=== PATIENT | female | born 1975 | race Caucasian/White ===

== ENCOUNTER 2021-06-07 16:37 | Emergency (ER) | payer MEDICAID ==
[~2021-06-07] VITALS: Ht 154.9 cm; Wt 44.5 kg
[~2021-06-07 16:37] MED LIST: BUDE180A INH; ESCI20TA PO; INSU100V36 SQ; LANTUS SQ; LEVA15HF4 INH; METF1000 PO; NITR0.4T51 SL; ONDA4TAB6 PO; PANT-47 PO
[2021-06-07 17:04] VITALS: BP 114/77
[2021-06-07] MEDS ORDERED: aspirin 81mg tab.chew PO ONE (17:10)
[2021-06-07] MEDS ORDERED: nitroGLYCERIN 0.4mg SUBLingual tab SL PRN (17:10)
[2021-06-07 17:32] LABS: BASOPHILS # (AUTO) 0.1 X10'3 (0-0.2); BASOPHILS % (AUTO) 1.9 % (0-1); EOSINOPHILS # (AUTO) 0.1 X10'3 (0-0.9); HEMATOCRIT 42.8 % (35.0-45.0); HEMOGLOBIN 14.7 g/dl (12.0-16.0); LYMPHOCYTES # (AUTO) 2.5 X10'3 (1.1-4.8); MEAN CORPUSCULAR HEMOGLOBIN 30.6 PG (27.0-31.0); MEAN CORPUSCULAR HGB CONC 34.4 g/dL (33.0-36.5); MEAN PLATELET VOLUME 8.5 FL (7.4-10.4); MONOCYTES # (AUTO) 0.4 X10'3 (0-0.9); NEUTROPHILS # (AUTO) 3.3 X10'3 (1.8-7.7); NEUTROPHILS % (AUTO) 51.1 % (42-75); PLATELET COUNT 248 X10'3 (140-440); RED BLOOD COUNT 4.81 X10'6 (4.20-5.60); RED CELL DISTRIBUTION WIDTH 13.6 % (11.5-14.5); WHITE BLOOD COUNT 6.5 X10'3 (4.5-11.0)
[2021-06-07 17:54] LABS: ALANINE AMINOTRANSFERASE 33 U/L (12-78); ALBUMIN 4.1 G/DL (3.4-5.0); ALBUMIN/GLOBULIN RATIO 1.2 (1.1-1.5); ALKALINE PHOSPHATASE 119 IU/L (46-116); ANION GAP 10 (8-16); ASPARTATE AMINO TRANSFERASE 15 U/L (10-37); BILIRUBIN,TOTAL 0.5 MG/DL (0.1-1.0); BLOOD UREA NITROGEN 7 MG/DL (7-18); BUN/CREATININE RATIO 12.5 (6.6-38.0); CALCIUM 9.4 MG/DL (8.5-10.1); CHLORIDE 101 MMOL/L (99-107); CREATININE 0.56 MG/DL (0.40-0.90); GLUCOSE 180 MG/DL (70-104); POTASSIUM 3.5 MMOL/L (3.5-5.1); SODIUM 139 MMOL/L (135-145); TOTAL CARBON DIOXIDE 28.4 MMOL/L (24-32); TOTAL PROTEIN 7.6 G/DL (6.4-8.2); eGFR > 90 ML/MIN
[2021-06-07 18:04] LABS: ETHANOL < 0.010 GM/DL (0.0-0.010)
== END 2021-06-07 20:34 | disposition left against medical advice (07) ==
LOC: ER 16:38
DX: R07.89 Other chest pain (principal); I25.10 Atherosclerotic heart disease of native coronary artery without angina pectoris; E78.00 Pure hypercholesterolemia, unspecified; I10 Essential (primary) hypertension; E11.9 Type 2 diabetes mellitus without complications; Z90.89 Acquired absence of other organs; Z90.710 Acquired absence of both cervix and uterus; Z88.0 Allergy status to penicillin; Z79.4 Long term (current) use of insulin; Z79.899 Other long term (current) drug therapy
CPT/HCPCS: 36415; 71045; 80053; 80320; 83880; 84484; 85025; 85379; 93005; 99285

== ENCOUNTER 2022-03-05 14:45 | Emergency (ER) | payer MEDICAID ==
[~2022-03-05] VITALS: Ht 154.9 cm; Wt 48.0 kg
[2022-03-05] MEDS ORDERED: dexamethasone sod phosphate 10mg/ml inj PO STA (20:07)
[2022-03-05] MEDS ORDERED: albuterol 2.5 MG/3 ML nebule NEB ONE (20:10)
[2022-03-05 21:06] LABS: BASOPHILS # (AUTO) 0.1 X10'3 (0-0.2); BASOPHILS % (AUTO) 1.3 % (0-1); EOSINOPHILS # (AUTO) 0.1 X10'3 (0-0.9); EOSINOPHILS % (AUTO) 1.5 % (0-6); HEMATOCRIT 45.7 % (35.0-45.0); HEMOGLOBIN 15.5 g/dl (12.0-16.0); LYMPHOCYTES # (AUTO) 2.9 X10'3 (1.1-4.8); LYMPHOCYTES % (AUTO) 36.5 % (21-51); MEAN CORPUSCULAR HEMOGLOBIN 29.7 PG (27.0-31.0); MEAN CORPUSCULAR HGB CONC 33.8 g/dL (33.0-36.5); MEAN CORPUSCULAR VOLUME 87.8 FL (78-98); MEAN PLATELET VOLUME 8.7 FL (7.4-10.4); MONOCYTES # (AUTO) 0.6 X10'3 (0-0.9); MONOCYTES % (AUTO) 7.1 % (2-12); NEUTROPHILS # (AUTO) 4.2 X10'3 (1.8-7.7); NEUTROPHILS % (AUTO) 53.6 % (42-75); PLATELET COUNT 240 X10'3 (140-440); RED CELL DISTRIBUTION WIDTH 13.2 % (11.5-14.5); WHITE BLOOD COUNT 7.9 X10'3 (4.5-11.0)
[2022-03-05 21:17] LABS: ALANINE AMINOTRANSFERASE 16 U/L (12-78); ALBUMIN 4.2 G/DL (3.4-5.0); ALBUMIN/GLOBULIN RATIO 1.1 (1.1-1.5); ALKALINE PHOSPHATASE 114 IU/L (46-116); ANION GAP 10 (8-16); ASPARTATE AMINO TRANSFERASE 13 U/L (10-37); BILIRUBIN,TOTAL 0.7 MG/DL (0.1-1.0); BLOOD UREA NITROGEN 7 MG/DL (7-18); BUN/CREATININE RATIO 10.9 (6.6-38.0); CALCIUM 9.7 MG/DL (8.5-10.1); CHLORIDE 98 MMOL/L (99-107); CREATININE 0.64 MG/DL (0.40-0.90); GLUCOSE 284 MG/DL (70-104); POTASSIUM 3.2 MMOL/L (3.5-5.1); SODIUM 137 MMOL/L (135-145); TOTAL CARBON DIOXIDE 28.6 MMOL/L (24-32); eGFR > 90 ML/MIN
[2022-03-05] MEDS ORDERED: POTASSIUM BICARB 20meq eff tab 20 MEQ TABLET.EFF PO ONE (21:25)
[2022-03-05] MEDS ORDERED: normal saline 1000ML IV soln IVB ONE (21:30)
[2022-03-05] MEDS ORDERED: PRED20TA PO (21:50)
[2022-03-05] MEDS ORDERED: METF-438 PO (21:50)
[2022-03-05] MEDS ORDERED: AZIT250T12 PO (21:50)
[2022-03-05] MEDS ORDERED: azithromycin 250mg tablet PO ONE (22:00)
[2022-03-05 22:13] VITALS: BP 133/77
== END 2022-03-05 22:15 | disposition home or self-care (01) ==
LOC: ER 14:46
DX: J45.901 Unspecified asthma with (acute) exacerbation (principal); U09.9 Post COVID-19 condition, unspecified; E78.00 Pure hypercholesterolemia, unspecified; I11.9 Hypertensive heart disease without heart failure; E11.9 Type 2 diabetes mellitus without complications; Z90.49 Acquired absence of other specified parts of digestive tract; Z88.0 Allergy status to penicillin; Z88.5 Allergy status to narcotic agent; Z79.899 Other long term (current) drug therapy
CPT/HCPCS: 36415; 71046; 80053; 82948; 85025; 94640; 99285; J1100; 94760

== ENCOUNTER → 2023-10-19 | Outpatient (CLI) | payer MEDICAID ==
[~2023-10-19] MED LIST changes: +METF-438 PO
== END | disposition home or self-care (01) ==
LOC: MRI 10:32
PROVIDERS: ATTEND Nurse Practitioner Family
DX: M89.312 Hypertrophy of bone, left shoulder (principal); M75.102 Unspecified rotator cuff tear or rupture of left shoulder, not specified as traumatic; M25.512 Pain in left shoulder
CPT/HCPCS: 73221

== ENCOUNTER 2025-01-17 19:01 | Emergency (ER) | payer MEDICAID ==
[~2025-01-17] VITALS: Ht 154.9 cm; Wt 46.9 kg
[~2025-01-17 19:01] MED LIST changes: -BUDE180A INH; +BUDE180A5 INH; -LEVA15HF4 INH; +LEVA15HF9 INH
--- NOTE | 2025-01-17 19:36 | Physician Documentation ---
HPI ~ General Chief Complaint: Medication Request Stated Complaint: POSS COVID/MED REQUEST Time Seen by MD: 19:35 Primary Medical Doctor: [facility] History of Present Illness HPI Comments Patient presents to the emergency room requesting COVID test. She has some body aches and congestion. No fevers. Also requesting refill of her gabapentin. Medication Reconciliation Allergies: Coded Allergies: Penicillins (Verified Allergy, Unknown, 03/10/14) acetaminophen (Verified Adverse Reaction, Severe, BLISTERS, 03/05/22) oxycodone (Verified Adverse Reaction, Severe, BLISTERS, 03/05/22) Scheduled Budesonide (Pulmicort Flexhaler), 2 PUFFS INH BID, (Reported) Escitalopram Oxalate (Lexapro), 1 TABLET PO DAILY, (Reported) Gabapentin (Neurontin), 1 CAP PO BID Insulin Glargine,Hum.rec.anlog (Lantus Solostar), 60 UNIT SQ BID, (Reported) Insulin Lispro* (Humalog*), 1 VIAL SQ SLIDING SCALE, (Reported) Levalbuterol Tartrate (Xopenex Hfa), 2 PUFFS INH Q4HPRN, (Reported) Metformin HCl (Metformin HCl), 1 TAB PO Q12H Metformin Hcl* (Glucophage*), 1 TABLET PO BID, (Reported) Ondansetron Hcl (Zofran), 1 TAB PO Q8H Pantoprazole Sodium (PROTONIX tablet), 1 TAB PO DAILY Scheduled PRN Nitroglycerin SL* (Nitrostat SL*), 1 TAB SL Q5MIN PRN for chest pain, (Reported) Past Medical History Past Medical History: Coronary Artery Disease, High Cholesterol, Hypertension, Pulmonary Fibrosis, Diabetes Past Surgical History: appendectomy, hysterectomy Alcohol Use: None Lives In: Home Review of Systems ROS All review of systems negative except as per HPI Physical Exam Physical Exam Vital Signs: Temperature: 98.7, Source: Oral, Heart Rate: 96, Respiratory Rate: 16, BP: 116/71, Pulse Oximetry: 97, Weight: 46.900 Oxygen Flow Rate: 0 Physical Exam General: Patient is awake, alert, oriented x4 in no acute distress Head: Normocephalic and atraumatic. Eyes: Conjunctival normal. EOMI. PERRL. ENT: Mucous membranes moist. Neck: Supple, trachea is midline. Chest: Clear to auscultation bilaterally without rales, rhonchi, or wheezes. There is no accessory muscle use or retractions. Cardiac: RRR without murmurs, gallops, or rubs. Abd: Soft, nondistended, nontender, with normoactive bowel sounds. No guarding, rebound, or rigidity. Progress Results/Orders Results/Orders Orders - WILLIAM AKERS MD Covid19 Binax Poc Result Entry (01/17/25 19:38) Vital Signs 01/17/25 01/17/25 19:04 19:45 Temp 98.7 98.6 Pulse 96 96 Resp 16 18 B/P (MAP) 116/71 117/72 Pulse Ox 97 99 O2 Flow Rate 0 Laboratory Tests Test 01/17/25 19:40 SARS-CoV-2 Antigen (Rapid) Negative Medical Decision Making Findings Patient presents to the emergency room requesting COVID test. She is nontoxic appearing he had not feel imaging or additional labs is necessary. COVID negative. Symptoms likely viral in nature Departure Disposition: 01 HOME / SELF CARE / HOMELESS Impression: Primary Impression: General medical exam Condition: Stable Discharge Instructions: Medicine Refill at the Emergency Department Referrals: NO PRIMARY CARE PROVIDER (PCP) Prescriptions Gabapentin (Neurontin) 300 Mg Capsule 1 CAP PO BID for 30 Days, #60 CAP 0 Refills Prov: WILLIAM AKERS MD 01/17/25 Education Educated: Patient Educated regarding: diagnosis, treatment, need for follow up Signature Scribe Signature: No scribe Attestation: The note accurately reflects work and decisions made by me.William Aekrs MD 01/17/25 19:42 WILLIAM AKERS MD Jan 17, 2025 19:36
[2025-01-17] MEDS ORDERED: GABA300C PO (19:41)
[2025-01-17 19:45] VITALS: BP 117/72; PULSE 96; RESP 18; TEMP 98.6; O2SAT 99
== END 2025-01-17 19:51 | disposition home or self-care (01) ==
LOC: ER 19:01
DX: R09.81 Nasal congestion (principal); E11.9 Type 2 diabetes mellitus without complications; E78.00 Pure hypercholesterolemia, unspecified; I10 Essential (primary) hypertension; I25.10 Atherosclerotic heart disease of native coronary artery without angina pectoris; Z76.0 Encounter for issue of repeat prescription; Z90.49 Acquired absence of other specified parts of digestive tract; Z90.710 Acquired absence of both cervix and uterus; Z88.8 Allergy status to other drugs, medicaments and biological substances; Z88.5 Allergy status to narcotic agent; Z88.0 Allergy status to penicillin; Z20.822 Contact with and (suspected) exposure to COVID-19
CPT/HCPCS: 36415; 87811; 99283